=== PATIENT | male | born 2005 | race Two or more races ===

== ENCOUNTER → 2024-06-23 | Outpatient (CLI) | payer BC, SELFPAY ==
[2024-06-23 12:28] LABS: Collection Type, Urine Clean Catch
[2024-06-23 13:18] LABS: Bacteria,Urine Rare; Bilirubin,Urine Negative (Negative); Blood,Urine Trace (Negative); Color,Urine Yellow (Lt Yel-Yel); Glucose, Urine Negative (Negative); Ketones,Urine Negative (Negative); Leukocyte Esterase,Urine Negative (Negative); Nitrite,Urine Negative (Negative); Protein,Urine 1+ (Neg - Trace); RBC,Urine 4 /hpf (0-3); Specific Gravity,Urine 1.032 (1.001-1.035); Squamous Epithelial Cell,Urine 1 /hpf (0-5); Urobilinogen,Urine Negative mg/dL (0.0-1.0); WBC,Urine 8 /hpf (0-5)
[2024-06-23 13:32] LABS: Clarity,Urine Hazy (Clear/Hazy)
== END | disposition home or self-care (01) ==
LOC: SLDO 12:23
PROVIDERS: Referring Provider Urology; Visit Provider Urology
DX: R31.1 Benign essential microscopic hematuria (principal)
CPT/HCPCS: 81001

== ENCOUNTER → 2024-06-30 | Outpatient (BNVA) | payer BC, SELFPAY | END | disposition home or self-care (01) | PROVIDERS: PCP Internal Medicine; Referring Provider Internal Medicine; Visit Provider Urology | DX: Z09 Encounter for follow-up examination after completed treatment for conditions other than malignant neoplasm (principal); E66.01 Morbid (severe) obesity due to excess calories; Z68.42 Body mass index [BMI] 45.0-49.9, adult; J45.909 Unspecified asthma, uncomplicated; E55.9 Vitamin D deficiency, unspecified; E53.8 Deficiency of other specified B group vitamins | CPT/HCPCS: 81003; 99212; G0463 ==

== ENCOUNTER → 2025-07-02 | Outpatient (BNVA) | payer BC, SELFPAY | END | disposition home or self-care (01) | PROVIDERS: PCP Internal Medicine; Referring Provider Internal Medicine; Visit Provider Physician Assistant | DX: R31.21 Asymptomatic microscopic hematuria (principal); E66.01 Morbid (severe) obesity due to excess calories | CPT/HCPCS: Q3014 ==

== ENCOUNTER → 2025-07-10 | Outpatient (CLI) | payer BC, SELFPAY ==
--- NOTE | 2025-07-10 13:26 | XR_ITS ---
EXAMINATION: Ultrasound soft tissue extremity right groin TECHNIQUE: Grayscale sonographic images soft tissue right groin Date and time: July 10, 2025, 1450 hours INDICATIONS: Right groin pain beginning 1 year ago. FINDINGS: 6 x 3 x 5 mm nodule in the right groin most consistent with lymph node IMPRESSION: Small lymph node in the right groin, suggest 6-month follow-up as clinically warranted
[2025-07-10 15:27] LABS: Collection Type, Urine Clean Catch
[2025-07-10 15:44] LABS: Basophils # (Auto) 0.0 Thou/mm3 (0.0-0.2); Basophils % (Auto) 0 % (0-2.5); Eosinophils # (Auto) 0.0 Thou/mm3 (0.0-0.5); Eosinophils % (Auto) 1 % (0-10); Hematocrit 42.0 % (41.0-53.0); Hemoglobin 13.7 g/dL (13.5-16.0); Immature Granulocytes Auto 0.03 Thou/mm3 (0.00-0.00); Lymphocytes # (Auto) 2.1 Thou/mm3 (1.0-4.8); Lymphocytes % (Auto) 25 % (10-50); Mean Corpuscular HGB Conc 32.6 g/dl (31.0-37.0); Mean Corpuscular Hemoglobin 28.1 pg (25.0-35.0); Mean Corpuscular Volume 86 fL (80-100); Monocytes # (Auto) 0.5 Thou/mm3 (0.0-0.8); Monocytes % (Auto) 6 % (0-12); Neutrophils # (Auto) 5.7 Thou/mm3 (1.8-7.7); Neutrophils % (Auto) 68 % (37-80); Nucleated Red Blood Cell # 0.00 Thou/mm3 (0.00-0.00); Nucleated Red Blood Cell % 0 /100 WBC (0); Platelet Count 211 Thou/mm3 (140-440); RDW Standard Deviation 42.8 fL (35.1-43.9); Red Blood Count 4.87 Miln/mm3 (4.50-5.90); White Blood Count 8.3 Thou/mm3 (3.8-10.6)
[2025-07-10 15:56] LABS: Bacteria,Urine Rare; Bilirubin,Urine Negative (Negative); Blood,Urine Trace (Negative); Clarity,Urine Clear (Clear/Hazy); Color,Urine Yellow (Lt Yel-Yel); Glucose, Urine Negative (Negative); Ketones,Urine Negative (Negative); Leukocyte Esterase,Urine Negative (Negative); Nitrite,Urine Negative (Negative); PH,Urine 6.0 (5.0-7.0); Protein,Urine Trace (Neg - Trace); RBC,Urine 8 /hpf (0-3); Specific Gravity,Urine 1.032 (1.001-1.035); Squamous Epithelial Cell,Urine 1 /hpf (0-5); Urobilinogen,Urine Negative mg/dL (0.0-1.0); WBC,Urine 2 /hpf (0-5)
[2025-07-10 16:00] LABS: Glucose Estimated Average 97 mg/dL (80-131); Hemoglobin A1C 5.0 % Hgb (4.8-6.0)
[2025-07-10 16:12] LABS: Vitamin B12 399 pg/mL (211-911); Vitamin D 25 Hydroxy Total 26.2 ng/mL (7.3-40.2)
[2025-07-10 16:13] LABS: Ferritin 93 ng/mL (10.5-307.3)
[2025-07-10 16:14] LABS: Alanine Aminotransferase 11 U/L (10-49); Albumin, Serum 5.1 gm/dL (3.5-5.0); Albumin/Globulin Ratio 1.5 (1.2-2.2); Alkaline Phosphatase 72 U/L (46-116); Anion Gap 11 (7-16); Aspartate Amino Transferase 14 U/L (0-34); BUN/Creatinine Ratio 14 Ratio (12-20); Bilirubin,Total 0.7 mg/dL (0.3-1.2); Blood Urea Nitrogen 11 mg/dL (9-23); Calcium 9.6 mg/dL (8.3-10.6); Calcium (Corrected) 9.6 mg/dL (8.5-10.1); Carbon Dioxide 27.9 mMol/L (20.0-31.0); Cardiac Risk Estimate 3.3 RATIO (4.0-6.7); Chloride 105 mMol/L (98-107); Cholesterol 131 mg/dL (132-200); Creatinine (Component) 0.8 mg/dL (0.6-1.3); Globulin 3.3 gm/dL (2.3-3.5); Glucose 89 mg/dL (74-106); HDL Cholesterol 40 mg/dL (40-60); LDL Cholesterol,Calculated 69 mg/dL (0-130); Osmolality,Calculated 285 (275-295); Potassium 3.7 mMol/L (3.4-5.1); Sodium 144 mMol/L (136-145); Thyroid Stimulating Hormone 2.27 uIU/mL (0.55-4.78); Total Protein 8.4 gm/dL (5.7-8.2); Triglycerides 110 mg/dL (30-150); Uric Acid 7.5 mg/dL (3.7-9.2); eGFR > 60 See Note
== END | disposition home or self-care (01) ==
LOC: CDIM 12:51 → COPL 15:01
PROVIDERS: Referring Provider Physician Assistant; Visit Provider Radiology Diagnostic Radiology
DX: R59.0 Localized enlarged lymph nodes (principal); Z00.00 Encounter for general adult medical examination without abnormal findings; R31.1 Benign essential microscopic hematuria
CPT/HCPCS: 36415; 76882; 80053; 80061; 81001; 82306; 82607; 82728; 83036; 84443; 84550; 85025